=== PATIENT | female | born 2000 | race Caucasian/White ===

== ENCOUNTER 2020-09-26 16:24 | Emergency (ER) | payer SELFPAY ==
[2020-09-26 16:26] VITALS: BP 126/75; PULSE 97; RESP 18; TEMP 36.6; O2SAT 100; BMI 20.5
[2020-09-26 16:41] LABS: Microscopic, Urine URINE MICROSCOPIC (MICROSCOPIC)
[2020-09-26 16:44] LABS: Appearance,Urine CLOUDY (Clear); Blood, Urine 3+ (Negative); Color,Urine DK YELLOW (Yellow); Glucose,Urine (UA) Negative (Negative); Ketones,Urine Negative (Negative); Leukocyte Esterase,Urine 1+ (Negative); Nitrate,Urine Negative (Negative); Protein,Urine 1+ (Negative); Specific Gravity, Urine >= 1.030 (1.005-1.030); Urobilinogen,Urine 0.2 EU/dl (0.2)
[2020-09-26 16:46] LABS: Urine Pregnancy, HCG Qual. Negative (Negative)
[2020-09-26 17:00] LABS: Bilirubin,Urine Negative (Negative)
[2020-09-26 17:01] LABS: Bacteria,Urine Trace /lpf; Squamous Epithelial Cell,Urine Occasional #/hpf (0-5)
[2020-09-26 17:08] VITALS: BP 107/63; PULSE 113; O2SAT 100
--- NOTE | 2020-09-26 17:16 | [facility].EDABDPAI ---
ED Disposition Clinical Impression: Dysmenorrhea Disposition: Home, Self-Care Condition on Discharge: Good Instructions: DI for Acute Abdominal Pain, DI for Dysmenorrhea Additional Instructions: Follow-up with your OBGYN within the next week for reevaluation and further consideration of control if desired. Use ibuprofen/Tylenol for pain control. Referrals: PCP,No [Primary Care Provider] - - Critical Care Critical Care Time: No Attestation: On , the high probability of a clinically significant, sudden or life threatening deterioration of the following system(s) required my full and direct attention, intervention and personal management. The time I documented below is in addition to time spent performing reported procedures but includes the following listed in this critical care notation. Medical Decision Making - Medical Records Medical records reviewed: Yes: I reviewed the patient's medical records. - Hermilo Inquiry Pt receiving controlled substance: No Vital Signs: 09/26/20 16:26 09/26/20 17:08 Temperature 97.9 F Temperature Source Oral Pulse Rate [Right Radial] 97 H 113 H Respiratory Rate 18 Blood Pressure [Right Arm] 126/75 107/63 L Blood Pressure Mean [Right Arm] 92 77 Blood Pressure Source [Right Arm] Automatic Cuff Automatic Cuff Blood Pressure Position [Right Arm] Sitting Sitting 02 Sat by Pulse Oximetry 100 100 Oxygen Delivery Method Room Air Room Air - Lab Data Lab results reviewed: Yes: I reviewed the patient's lab results. Lab Results 09/26/20 16:34: Urine Color Dk yellow, Urine Appearance Cloudy, Urine pH 6.0, Ur Specific [place] >= 1.030, Urine Protein 1+, Urine Glucose (UA) Negative, Urine Ketones Negative, Urine Blood 3+, Urine Nitrate Negative, Urine Bilirubin Negative, Urine Urobilinogen 0.2, Ur Leukocyte Esterase 1+ A, Urine RBC 10-20, Urine WBC 3-5, Ur Squamous Epith Cells Occasional, Urine Bacteria Trace 09/26/20 16:34: Urine HCG, Qual Negative Orders (Tests/Meds): ED MEDICATIONS Discontinued Medications Generic Name Dose Route Start Last Admin Trade Name Freq PRN Reason Stop Dose Admin Ibuprofen 600 mg 09/26/20 16:38 09/26/20 17:06 Ibuprofen 600 Mg Tablet PO 09/26/20 16:39 600 mg ONCE ONE Administration ORDERS Category Date Time Status Urine Culture Stat Micro 09/26/20 16:34 Received Medical Decision Narrative: test negative, likely delayed menstrual cycle given Depo treatment. She has a benign abdomen. Advised follow-up with refractory worker within the next several days for reevaluation and consideration of further methods of control if desired. No tachycardia or hypotension that would suggest significant anemia. Abdominal Pain HPI - General Chief Complaint: Abdominal Pain Stated Complaint: Vag bleeding, Vomiting Time Seen by Provider: 09/26/20 17:17 Mode of Arrival: Ambulatory Limitations: No Limitations Description of Symptoms (Recalled from ER Triage Doc. by RN): Pt reports lower abd cramping intermittently for approx 1 week. Pt reports began having vaginal bleeding while having intercourse lastnight. Pt reports cramping has been constant since lastnight. Pt also reports vomitting - History of Present Illness HPI narrative: This is a 20-year-old female with no significant past medical history presents to the emergency department for vaginal bleeding and abdominal cramping. She has had abdominal cramping radiating to her lower back like a menstrual cycle for the last week. She started having vaginal bleeding last night during intercourse. Her Depo shot ran out 1 year ago and she has not had a period yet, so was not sure if she started her menstrual cycle or if she was so presents here for evaluation of that. She states that her cramping will sometimes get better if she lies down, but has not tried any medication. - Related Data Allergies Allergy/AdvReac Type Severity Reaction Status Date /
[2020-09-26 17:30] VITALS: BP 123/74; PULSE 119; RESP 18; TEMP 36.6; O2SAT 100
== END 2020-09-26 17:30 | disposition home or self-care (01) ==
PROVIDERS: Emergency Provider Emergency Medicine
DX: N94.6 Dysmenorrhea, unspecified (principal)
CPT/HCPCS: 81001; 81025; 87086; 99282